=== PATIENT | female | born 1935 | race Two or more races ===

== ENCOUNTER 2024-07-11 15:06 | Emergency (ER) | payer MEDICARE, OTHER ==
[~2024-07-11] VITALS: Ht 162.6 cm; Wt 77.2 kg
--- NOTE | 2024-07-11 17:11 | ED.PDOC ---
Back pain HPI HPI Comments HPI: 89 y/o F, with PMHX of arthritis, chronic back pain, dementia, and HTN, BIBA, presents to the ED for CC of back pain. EMS reports, patient is coming from home were emergency medical serivces were called by patient's daughter d/t worsening lower back pain x1day. EMS relays, per daughter she stopped giving patient her [place] x1week ago d/t scheduling of a procedure and has since, developed increasing pain. Patient's baseline is A&Ox2 no other symptoms or modifying factors obtainable at this time. Vitals Temperature: 99.1 Respiratory rate: 16 SpO2:98% Heart rate:72 Blood pressure: 127/67 Past Medical History: ARTHRITIS, CHRONIC BACK PAIN, HTN, DEMENTIA Past Surgical History: Social History: DENIES ANY HPI: Poor Historian. 39-year-old female points to her left lumbosacral area where her pain is. She has chronic back pain on [place] and Advil. Her daughter took away her [place] from her. Patient denies any cauda equina like symptoms. Denies any fall or trauma or injury. This is chronic in nature. She is here for pain control. Patient is able to move all her extremities while lying in the gurney. Patient's neuro refractory intact in lower extremity. Patient states she has back pain because he has severe arthritis. REVIEW OF SYSTEMS: CONSTITUTIONAL: Denies acute: fever, diaphoresis, chills, generalized weakness. HEAD: Denies acute: headache, photophobia Eyes: Denies acute: Double vision, vision loss, eye pain, eye discharge. EARS: Denies acute: tinnitus, hearing loss, ear discharge, ear pain, THROAT: Denies acute: sore throat, swelling, difficulty swallowing , pain with swallowing, change in voice. NECK: Denies acute: neck pain, neck swelling, stiff neck. HEART: Denies acute : chest pain, palpitations, LUNGS: Denies acute: SOB, wheezing, cough, hemoptysis ABDOMEN: Denies acute: abdominal pain, Nausea, Vomiting, diarrhea, melena , hematemesis, hematochezia SKIN: Denies acute: rash, redness, lesions, itchiness. EXTREMITIES: Denies acute: calf pain, numbness, tingling, weakness, denies pain in extremity. Neuro: Denies acute: focal neurological deficit, motor or sensory focal neurological deficit, tremors, seizure like activity, confusion, dizziness, change in mental status, loss of bowel or bladder function, cauda equina like symptoms. : Denies acute: dysuria, hematuria, flank pain, increase in urinary frequency. PSYCH: Denies acute: hallucination, suicidal ideation, homicidal ideation. FEMALE: Denies acute: abnormal vaginal bleeding, foul odor, unusual discharge. PHYSICAL EXAM: General: ----[id number]----acute distress, awake and alert. Head: normocephalic, atraumatic. Neck: supple, trachea is midline, no swelling. Throat: Normal phonation. Eyes:, no erythema, no purulent discharge, no proptosis, no icterus. Heart: regular rate, regular rhythm, no significant murmur appreciated. Lungs: no apparent respiratory distress, Able to speak in full sentences. No wheezing, no rhonchi, no crackles. No stridors Clear to auscultation bilaterally. Abdomen: non tender to palpation, non distended, soft, no guarding, no rebound, + bowel sounds. Neuro: Awake, Alert, oriented to name, self, situation, follows commands GCS=15. Speech is normal. Skin: no petechia, no purpura, no cyanosis, non-pale, not jaundice. Lower extremities: --no - Pitting edema no deformity, no focal swelling, no calf TTP. Makes eye contact. moves all four extremities. Face: no apparent facial droop. Pedal pulses are palpable. ED COURSE: Chief Complaint: Back Pain Time Seen by MD: 17:00 Reviewed Notes: Nurses Notes, General Labor Notes, Medications, Allergies Allergies: Coded Allergies: NO KNOWN ALLERGIES (Unverified , 07/11/24) Information Source: Patient Mode of Arrival: EMS Timing: Days Duration: Since onset Location of Back pain: (B) Lumbar Severity: Moderate Prehospital treatment: None Onset: Spontaneous History of: Chronic Back Pain, Arthritis Modifying Factors: Nothing Associated signs and symptoms: None Was a procedure done? Was a procedure done?: No Back Pain Differential Dx Differential Diagnosis: Musculoskeletal Pain, Strain, Other (DDX included but not limited to Cauda Equina syndrome, lumbar radiculopathy, arthritis, disk herniation, sciatica, muscle strain, epidural abscess, transverse myelitis. Cord compression, spinal foraminal stenosis, spinal fractures, spondylosis, central canal stenosis, trauma, muscle sprain/strain, aneurysm/dissection, kidney stones, shingles, arthritis, Guillan Dixon, neoplasm.) X-Ray, Labs, Meds, VS Vital Signs Date Time Temp Pulse Resp B/P (MAP) Pulse Ox O2 Delivery O2 Flow Rate FiO2 07/11/24 17:24 98.4 81 13 100/52 (68) 95 98.4 07/11/24 17:24 71 13 99 Room Air* 0 21 07/11/24 15:12 99.1 72 16 127/67 (87) 98 99.1 Current Medications Medications (Trade) Dose Ordered Sig/Oscar Route Start Time Stop Time Status Last Admin Acetaminophen/ Hydrocodone Bitart ([place] 5/325MG Tab) 1 tab ONCE ONCE PO 07/11/24 17:15 07/11/24 17:16 DC 07/11/24 17:32 Ketorolac Tromethamine (Toradol Injection) 15 mg ONCE ONCE IM 07/11/24 17:15 07/11/24 17:16 DC 07/11/24 17:32 Time of 1ST Reevaluation: 17:30 Reevaluation 1ST: Unchanged Time of 2ND Reevaluation: 18:23 (After patient was received medications, she was able to ambulate and she states that she feels better. Family at bedside. Patient is willing to be discharged home and follow up with pain management and her specialists.) Reevaluation 2ND: Improved Patient Education/Counseling: Diagnosis, Treatment Family Education/Counseling: No Family Present Comments Patient presented with the above HPI.--chronic low back pain---workup was initiated. patient was found with the above mentioned diagnosis. the following medications were ordered: please refer to order lists of meds and tests obtained by myself Dr. Ta. Patient ED course and VS have been stabilized. Patient has been reassessed in the ED and remained in a stable condition. Pertinent incidental findings were discussed with the patient and/or family. Patient/family voices understanding and is agreeable with plan. Patient has been observed in the ED adequate length of time to insure improvement/stability. Escalation of care considered: Consideration of escalation to observation or admission Patient was given medications and reassessed and she is able to ambulate and her pain has improved. Patient has [place] at home. Patient needs to follow up with the pain management orthopedic doctor. No cauda equina like symptoms. Patient was DISCHARGED home in a stable condition. All the reports of any imaging studies that were ordered by myself were reviewed by myself. Departure 1 Departure Time of Disposition: 18:24 Impression: Primary Impression: Low back pain Disposition: HOME / SELF CARE / HOMELESS Condition: Stable Additional Instructions: Additional instructions: You MUST follow-up with your primary care/family doctor in 1 to 2 days. If you are unable to see your primary care/family doctor, please return to our emergency room for re-assessment and re-evaluation in 1 to 2 days. Return to the emergency room here in our facility or to the nearest ER [facility] if your symptoms change or worsen. CONSULTATIONS: you MUST Follow-up for consultation as soon as possible with: -pain management and orthopedic doctor in 1-2 days. Please call for appointment. You MUST call the consultants office yourself to make an appointment. You may need to arrange that through your insurance and/or your primary/family doctor. If you are unable to see the dietitian consultant in 1 to 2 days, you must return to our emergency room (or any other ER of your choice) for re-assessment and re- evaluation. Adequate fluid hydration. Discharged With: Self Heart Score Heart Score: Heart Score Response (Comments) Value History N/A 0 EKG N/A 0 Age N/A 0 Risk Factors N/A 0 Troponin N/A 0 Total 0 I personally scribed for MARGAUX TA DO ([email or web address]) on 07/11/24 at 17:11. Electronically submitted by Fe Weaver ([email or web address]). MARGAUX TA DO Jul 11, 2024 17:11
[2024-07-11 17:24] VITALS: BP 100/52; PULSE 71; RESP 13; TEMP 98.4; O2SAT 99
[2024-07-11] MEDS: KETOROLAC TROMETH 30 MG/ML 1ML VIAL IM ONE (17:32)
[2024-07-11] MEDS: HYDROcodone-ACET 5/325MG TAB PO ONE (17:32)
== END 2024-07-11 18:46 | disposition home or self-care (01) ==
LOC: ER 15:06 → EDBD 15:06 → ER 18:46
DX: M54.50 Low back pain, unspecified (principal); F03.90 Unspecified dementia, unspecified severity, without behavioral disturbance, psychotic disturbance, mood disturbance, and anxiety; G89.29 Other chronic pain; I10 Essential (primary) hypertension; M19.90 Unspecified osteoarthritis, unspecified site
CPT/HCPCS: 96372; 99283; J1885